=== PATIENT | male | born 1985 | race Caucasian/White ===

== ENCOUNTER 2018-03-13 18:03 | Emergency (ER) | payer MEDICAID ==
[2018-03-13] MEDS: DEXAMETHASONE 10 MG/ML 1 ML INJ IM (19:53)
[2018-03-13] MEDS: DIPHENHYDRAMINE 50 MG INJ IM (19:54)
== END 2018-03-13 20:31 | disposition home or self-care (01) ==
LOC: FTE 18:03
DX: R22.0 Localized swelling, mass and lump, head (principal)
CPT/HCPCS: 96372; 99284-25

== ENCOUNTER 2019-03-12 16:39 | Emergency (ER) | payer MEDICAID ==
[2019-03-12 17:36] LABS: ADD UMIC YES; UR ASCORBIC ACID NEGATIVE (NEGATIVE); UR BILIRUBIN (Dip) NEGATIVE (NEGATIVE); UR BLOOD (Dip) 1+ mg/dL (NEGATIVE); UR CLARITY CLEAR (CLEAR); UR COLOR YELLOW (YELLOW); UR GLUCOSE (Dip) NEGATIVE (NEGATIVE); UR KETONES (Dip) TRACE mg/dL (NEGATIVE); UR LEUKOCYTE ESTERASE (Dip) NEGATIVE Leu/ul (NEGATIVE); UR MUCUS FEW /HPF (NONE SEEN); UR NITRITE (Dip) NEGATIVE (NEGATIVE); UR RBC 0 /HPF (0-5); UR SPECIFIC GRAVITY (Dip) 1.027 (1.003-1.030); UR TOTAL PROTEIN (Dip) NEGATIVE (NEGATIVE); UR UROBILINOGEN (Dip) NEGATIVE (NEGATIVE); UR WBC 0 /HPF (0-5)
== END 2019-03-12 18:50 | disposition home or self-care (01) ==
LOC: FTE 16:39
DX: R10.9 Unspecified abdominal pain (principal)
CPT/HCPCS: 74018; 81001; 99284-25